=== PATIENT | male | born 1965 | race Caucasian/White ===

== ENCOUNTER 2019-04-01 15:13 | Emergency (ER) | payer OTHER ==
[2019-04-01 15:45] VITALS: BP 131/82
--- NOTE | 2019-04-01 16:07 | UC ---
UC General HPI - HPI Summary HPI Summary: Pt c/o gradual onset of right side cheek swelling and tenderness. Pt reports that he has noticed intermittent swelling to right side of cheek anterior to tragus. Pt states the he sleeps on right side with right arm extended and frequently wakes with right cheek swelling and tenderness. Pt reports that today he noticed that the swelling has not resolved and is getting worse not better. Pt was seen by dentist last week and had dental xrays. Pain worsens with eating and touch - History of Current Complaint Chief Complaint: UCGeneralIllness Stated Complaint: FACIAL SWELLING - RIGHT SIDE Time Seen by Provider: 04/01/19 15:54 Hx Obtained From: Patient Onset/Duration: Gradual Onset, Lasting Days, Still Present Timing: Constant Onset Severity: Mild Current Severity: Moderate Pain Intensity: 8 Associated Signs & Symptoms: Positive: Edema - Allergy/Home Medications Allergies/Adverse Reactions: Allergies Allergy/AdvReac Type Severity Reaction Status Date / Time meperidine [From Demerol] Allergy Severe anaphylactic Verified 04/01/19 15:46 shock PMH/Surg Hx/FS Hx/Imm Hx Previously Healthy: Yes - Surgical History Surgical History: Yes Surgery Procedure, Year, and Place: HAND AND FOOT SURGERY - Family History Known Family History: Positive: Cardiac Disease - Social History Occupation: Employed Full-time - retiring Lives: With Family Alcohol Use: Occasionally Substance Use Type: None Smoking Status (MU): Former Smoker Type: Cigarettes Have You Smoked in the Last Year: No When Did the Patient Quit Smoking/Using Tobacco: 25 YRS AGO - Immunization History Vaccination Up to Date: Yes Review of Systems All Other Systems Reviewed And Are Negative: Yes Constitutional: Positive: Negative Skin: Positive: Other - erythema Eyes: Positive: Negative ENT: Positive: Other - right cheek swelling tragus tenderness, swelling to parotid gland denies fever recently Respiratory: Positive: Negative Cardiovascular: Positive: Negative Gastrointestinal: Positive: Negative Genitourinary: Positive: Negative Motor: Positive: Negative Neurovascular: Positive: Negative Musculoskeletal: Positive: Negative Neurological: Positive: Negative Psychological: Positive: Negative Is Patient Immunocompromised?: No Physical Exam Triage Information Reviewed: Yes Appearance: Well-Appearing Vital Signs: Initial Vital Signs Temp 97.8 F 04/01/19 15:39 Pulse 74 04/01/19 15:39 Resp 17 04/01/19 15:39 BP 131/82 04/01/19 15:39 Pulse Ox 97 04/01/19 15:39 Vital Signs Reviewed: Yes Eye Exam: Normal ENT: Positive: Other - right side tragal tenderenss, right side parotid gland swelling, mild erythema Dental Exam: Normal Neck exam: Normal Respiratory Exam: Normal Respiratory: Positive: No respiratory distress Musculoskeletal Exam: Normal Neurological Exam: Normal Psychological Exam: Normal Skin Exam: Other - mild erythema right side cheek just anterior to tragus Course/Dx - Differential Dx - Multi-Symptom Differential Diagnoses: Other - parotitis - Diagnoses Provider Diagnosis: Sialadenitis Discharge - Sign-Out/Discharge Documenting (check all that apply): Patient Departure All imaging exams completed and their final reports reviewed: No Studies - Discharge Plan Condition: Stable Disposition: HOME Prescriptions: Amoxicillin PO (*) [Amoxicillin 500 MG CAP*] 500 mg PO Q12H #14 cap predniSONE TAB* [Deltasone 10 MG TAB*] 30 mg PO DAILY #12 tab Patient Education Materials: Sialoadenitis (ED) Referrals: Tony Stinson DO [Primary Care Provider] - If Needed Additional Instructions: Please follow up with your PCP and dental care provider as soon as possible. - Billing Disposition and Condition Condition: STABLE Disposition: Home
== END 2019-04-01 16:12 | disposition home or self-care (01) ==
LOC: UCCORT 15:13
DX: K11.20 Sialoadenitis, unspecified (principal); Z88.8 Allergy status to other drugs, medicaments and biological substances; Z87.891 Personal history of nicotine dependence
CPT/HCPCS: 99202; G0463

== ENCOUNTER 2019-05-05 11:07 | Emergency (ER) | payer OTHER ==
[2019-05-05 11:48] VITALS: BP 129/92
--- NOTE | 2019-05-05 12:34 | ED ---
Upper Extremity Pain - HPI Summary HPI Summary: 53 yr old male with the complaint of medial right elbow and forearm pain. Onset of pain a month ago. The patient states he has been continuing to play golf and it seems to exacerbate the pain. He notice that overnight he developed a bruise with some swelling to the medial right anterior forearm. orgin near medial epicondyle and going downward half way the distance of the right medial forearm. No fever or chills. No other complaints. - History of Current Complaint Chief Complaint: UCUpperExtremity Stated Complaint: RT ARM PAIN Time Seen by Provider: 05/05/19 11:58 - Allergies/Home Medications Allergies/Adverse Reactions: Allergies Allergy/AdvReac Type Severity Reaction Status Date / Time meperidine [From Demerol] Allergy Severe anaphylactic Verified 05/05/19 11:37 shock PMH/Surg Hx/FS Hx/Imm Hx Cardiovascular History: Reports: Hx Hypertension - Surgical History Surgery Procedure, Year, and Place: HAND AND FOOT SURGERY Infectious Disease History: No Infectious Disease History: Reports: Traveled Outside the in Last 30 Days - Family History Known Family History: Positive: Cardiac Disease - Social History Occupation: Employed Full-time Alcohol Use: Occasionally Substance Use Type: Reports: None Smoking Status (MU): Former Smoker Type: Cigarettes Have You Smoked in the Last Year: No Review of Systems Constitutional: Negative Positive: Other - right medial forarm bruise and medial elbow pain All Other Systems Reviewed And Are Negative: Yes Physical Exam Triage Information Reviewed: Yes Vital Signs On Initial Exam: Initial Vitals Temp Pulse Resp BP Pulse Ox 97.1 F 70 20 129/92 95 05/05/19 11:39 05/05/19 11:39 05/05/19 11:39 05/05/19 11:39 05/05/19 11:39 Vital Signs Reviewed: Yes Appearance: Positive: Well-Appearing, No Pain Distress Skin: Positive: Warm, Other - bruise right medial forearm. Head/Face: Positive: Normal Head/Face Inspection Eyes: Positive: EOMI ENT: Positive: Pharynx normal Neck: Positive: Nontender Respiratory/Lung Sounds: Positive: Clear to Auscultation, Breath Sounds Present Cardiovascular: Positive: RRR. Negative: Murmur Abdomen Description: Negative: Distended Musculoskeletal: Positive: Other - right medial forearm with bruise and swelling from the medial epicondyle to the midpoint of right forearm medially. He has tenderness over the medial epicondyle right elbow. Neurological: Positive: Sensory/Motor Intact, Alert, Oriented to Person Place, Time, CN Intact II-III, Normal Gait, Speech Normal Psychiatric: Positive: Normal - Ashlee Coma Scale Best Eye Response: 4 - Spontaneous Best Motor Response: 6 - Obeys Commands Best Verbal Response: 5 - Oriented Coma Scale Total: 15 Diagnostics - Vital Signs Vital Signs Temp Pulse Resp BP Pulse Ox 05/05/19 11:39 97.1 F 70 20 129/92 95 - Laboratory Lab Statement: Any lab studies that have been ordered have been reviewed, and results considered in the medical decision making process. - Radiology right elbow Radiology Interpretation Completed By: Radiologist - NAD - Ultrasound right arm Ultrasound Interpretation Completed By: Radiologist - No DVT. Soft tissue are neg. Course/Dx - Course Course Of Treatment: 53 yr old likely medial epicondylitis, and possible muscle tear medial compartment forearm. Rx with motrin, and referral to ortho. recommend no golf at this point. FU with PMD. - Diagnoses Provider Diagnoses: Medial epicondylitis, right elbow, Muscle tear Discharge - Sign-Out/Discharge Documenting (check all that apply): Patient Departure All imaging exams completed and their final reports reviewed: Yes - Discharge Plan Condition: Good Disposition: HOME Patient Education Materials: Tennis Elbow (ED), Muscle Strain (DC) Referrals: Tony Stinson DO [Primary Care Provider] - Angel Mcfadden MD [Medical Doctor] - 1 Day Additional Instructions: Do not play golf until you have seen orthopedics and been cleared of muscle tendon tear, and you are all healed up. - Billing Disposition and Condition Condition: GOOD Disposition: Home
== END 2019-05-05 13:22 | disposition home or self-care (01) ==
LOC: UCCORT 11:07
DX: M77.01 Medial epicondylitis, right elbow (principal); S46.811A Strain of other muscles, fascia and tendons at shoulder and upper arm level, right arm, initial encounter; X50.0XXA Overexertion from strenuous movement or load, initial encounter; Y93.53 Activity, golf; Y92.39 Other specified sports and athletic area as the place of occurrence of the external cause; I10 Essential (primary) hypertension; Z87.891 Personal history of nicotine dependence
CPT/HCPCS: 99201; G0463